=== PATIENT | male | born 1975 | race Caucasian/White ===

== ENCOUNTER 2018-02-23 19:47 | Emergency (ER) | payer MEDICAID ==
[~2018-02-23] VITALS: Ht 180.3 cm; Wt 114.0 kg
[2018-02-23 20:13] VITALS: BP 125/75; Ht 180.3 cm; Wt 114.0 kg
== END 2018-02-23 21:20 | disposition home or self-care (01) ==
LOC: ED 19:47
DX: H92.01 Otalgia, right ear (principal)

== ENCOUNTER 2018-07-09 15:29 | Emergency (ER) | payer MEDICAID ==
[~2018-07-09] VITALS: Ht 180.3 cm; Wt 109.3 kg
[2018-07-09 15:38] VITALS: Ht 180.3 cm; Wt 109.3 kg
[2018-07-09 16:56] VITALS: BP 131/95
== END 2018-07-09 16:56 | disposition home or self-care (01) ==
LOC: ED 15:29
DX: R51 Headache (principal)

== ENCOUNTER 2018-12-30 13:47 | Emergency (ER) | payer MEDICAID ==
[~2018-12-30] VITALS: Ht 177.8 cm; Wt 107.0 kg
[2018-12-30 14:05] VITALS: Ht 177.8 cm; Wt 107.0 kg
[2018-12-30 16:06] VITALS: BP 159/92
== END 2018-12-30 16:06 | disposition home or self-care (01) ==
LOC: ED 13:47
DX: G89.29 Other chronic pain (principal); M54.6 Pain in thoracic spine
CPT/HCPCS: 72072

== ENCOUNTER 2019-10-25 15:34 | Emergency (ER) | payer BC ==
[~2019-10-25] VITALS: Ht 180.3 cm; Wt 102.5 kg
[2019-10-25 15:42] VITALS: Ht 180.3 cm; Wt 102.5 kg
[2019-10-25 19:16] VITALS: BP 142/82
== END 2019-10-25 19:16 | disposition home or self-care (01) ==
LOC: ED 15:34
DX: S86.911A Strain of unspecified muscle(s) and tendon(s) at lower leg level, right leg, initial encounter (principal); W17.89XA Other fall from one level to another, initial encounter; Y93.89 Activity, other specified; Y92.89 Other specified places as the place of occurrence of the external cause; Y99.8 Other external cause status
CPT/HCPCS: Q0092